=== PATIENT | male | born 1990 | race Caucasian/White ===

== ENCOUNTER 2020-06-17 10:22 | Emergency (ER) | payer SELFPAY ==
[2020-06-17 10:26] VITALS: BP 149/74; PULSE 66; RESP 18; TEMP 36.8; O2SAT 98
--- NOTE | 2020-06-17 10:30 | DI.RAD_ITS ---
EXAM: XR WRIST RT COMPLETE CLINICAL HISTORY: pain s/p fall two days ago. TECHNIQUE: 2D digital imaging was performed. COMPARISON: No exams were available for comparison FINDINGS: BONES: There is an acute nondisplaced intra-articular fracture of the medial aspect of the distal rig ht radius. There is a tiny density in the dorsum of the wrist which may represent an avulsed triquet ral fracture. No bony destructive lesion is seen. JOINTS: The carpal bones are normally aligned. SOFT TISSUE: Soft tissue swelling about the wrist. IMPRESSION: 1. Nondisplaced intra-articular fracture of the medial aspect of the distal right radius. 2. Tiny density at the dorsum of the wrist which may represent an avulsed triquetral fracture. DATA REPOSITORY: RADIATION DOSE DELIVERED:
--- NOTE | 2020-06-17 10:33 | W.ED.GENAD ---
Discharge Plan Disposition Patient Disposition: HOME Condition: Stable Discharge Details Chief Complaint: Orthopedic Clinical Impression: Right wrist sprain Primary Care Provider: Unknown,Unknown ED Provider: Prashant Sorensen Discharge Instructions Instructions: Wrist Sprain (ED) Additional Instructions: you can take 1000mg tylenol and 600mg ibuprofen every 6 hours for pain as needed if pain continues in a week be seen for reexam and possible additional imaging if you feel the pain is severely worsening return to the emergency department Medical Decision Making 29 yo male who denies chronic medical problems states 2 days ago he slipped and landed on his outstretched right wrist. Denies hitting head or loc. He came in today because he leaves in a week for prolonged fishing trip for work in [place] and is still having pain. Localizes the pain to the radial side of the wrist and does have swelling, can full move the wrist though with pain, no snuffbox tenderness and can full move all fingers without pain in the fingers or metacarpals. No pain in forearm elbow or shoulder and no pain elsewhere or neck tenderness. Suspect wrist contusion but will xray to evaluate for fx. xray negative on my read applied thumb spica splint and advised if pain continues in a week needs to be seen for possible mri which he voices understanding of, if radiologist sees anything will call him. Differential Diagnosis Differential Diagnosis: sprain, strain, fracture Imaging Data Radiologic Study: Attestation: I personally reviewed and interpreted this imaging study as follows: Imaging: X-Ray My impression: no acute findings HPI General Mode of arrival: ambulatory. Date/Time Provider Initiated Documentation: 06/17/20 10:25. Limitations to Documentation: no limitations. Information obtained by: patient. History of Present Illness 29 year old M presents to the emergency department with the chief complaint of wrist pain s/p fall, described as moderate, Patient started experiencing this day(s) (2) and it has been constant. No relieving factors improve symptom(s), No exacerbating factors reported . Patient notes no other symptoms.. Patient did receive the following treatments prior to arrival, NSAID Related Data Allergies Allergy/AdvReac Type Severity Reaction Status Date / Time No Known Allergies Allergy Unverified 06/17/20 10:30 General Stated Complaint: Orthopedic PATEL: 4 Review of Systems All systems reviewed & are unremarkable except as noted in HPI and below Constitutional Constitutional: Denies chills, Denies fever(s) and Denies weakness Cardiovascular Cardiovascular: Denies chest pain and Denies dyspnea Respiratory Respiratory: Denies cough and Denies dyspnea Gastrointestinal Gastrointestinal: Denies abdominal pain, Denies nausea and Denies vomiting Neurologic Neurologic: Denies weakness [facility] Social History Smoking/Tobacco Use Status: Never Smoking risk assessment performed?: Yes Alcohol Intake: current Alcohol Intake frequency: a few times a week Drug use: Occasionally Substance use type: marijuana Do you feel safe at home: Yes Do you feel safe in your relationship?: Yes Exam Const General: no acute distress Orientation: alert HENMT Head: normal to inspection Ears: external ears normal General nose exam: external nose normal Mouth: moist mucous membranes Eyes General: appearance normal, both eyes and all related structures Neck Neck: normal visual inspection Resp Effort & Inspection: normal respiratory effort and able to speak in complete sentences Cardio Rate: regular rate Skin General skin exam: no rashes or lesions noted Neuro General: patient alert and patient oriented x3 Extrem General: capillary refill normal Psych Mental Status: mental status grossly normal Course Vital Signs Vital signs: Vital Signs Temperature 36.8 C 06/17/20 10:26 Pulse 66 06/17/20 10:26 Respiratory Rate 18 06/17/20 10:26 Blood Pressure 149/74 H 06/17/20 10:26 Pulse Oximetry 98 06/17/20 10:26 Temperature 36.8 C 06/17/20 10:26 Temperature Source Skin 06/17/20 10:26 Pulse 66 06/17/20 10:26 Respiratory Rate 18 06/17/20 10:26 Respiratory Effort Non-Labored 06/17/20 10:30 Blood Pressure 149/74 H 06/17/20 10:26 Blood Pressure Position Sitting 06/17/20 10:26 Pulse Oximetry 98 06/17/20 10:26 Oxygen Delivery Method Room Air 06/17/20 10:26 Oxygen Flow Rate 0 06/17/20 10:26 Pain Level 4 06/17/20 10:26
--- NOTE | 2020-06-17 11:44 | W.ED.FU ---
Follow Up Plan: radiology read it has nondisplaced radial fracture. Left a message for the patient of results and to call back and will place on follow up list for orthopedics
--- NOTE | 2020-06-17 12:57 | W.ED.FU ---
Follow Up Plan: pt called back and was advised of fracture and advised we normally have people with this fracture follow up with ortho but he declined at this time, understands he can call back for referral if he changes his mind
== END 2020-06-17 11:21 | disposition home or self-care (01) ==
PROVIDERS: Emergency Provider Emergency Medicine
DX: S52.571A Other intraarticular fracture of lower end of right radius, initial encounter for closed fracture (principal); W00.0XXA Fall on same level due to ice and snow, initial encounter
CPT/HCPCS: 25600; 73110